=== PATIENT | female | born 1990 | race Caucasian/White ===

== ENCOUNTER → 2019-12-17 | Outpatient (CLI) | payer OTHER ==
--- NOTE | 2019-12-17 10:31 | REP ---
FOCUSED RIGHT BREAST SONOGRAPHY: HISTORY: Right breast lump. Superior to the areola present times 6-12 months. Bilateral saline implants. FINDINGS: Sonographic scanning is performed at the 10-12 o'clock position of the right breast in the area where the patient directs us to the site of the palpable lump. Heterogeneous fibroglandular background echotexture is seen. No cyst or mass is observed. Visualized implant margins appear intact. IMPRESSION: BIRADS category 1 negative right breast sonography. No suspicious abnormality. Clinical followup is advised.
== END ==
LOC: M WHC 08:50
PROVIDERS: ATTEND Nurse Practitioner Primary Care
DX: N63.10 Unspecified lump in the right breast, unspecified quadrant (principal); Z98.82 Breast implant status